=== PATIENT | male | born 1955 | race Caucasian/White ===

== ENCOUNTER → 2018-06-12 | Emergency (ER) | payer MEDICARE ==
[~2018-06-12] VITALS: Ht 188 cm; Wt 99.8 kg
[~2018-06-12] MED LIST: IBUPROFEN600 MG PO; NORCO 5-325 TA1 EACH PO; PENICILLIN V P500 MG PO
== END ==
LOC: ED 14:01
DX: K04.7 Periapical abscess without sinus (principal)
CPT/HCPCS: 99282